=== PATIENT | female | born 1985 | race Caucasian/White ===

== ENCOUNTER → 2024-10-05 13:31 | Outpatient (REF) | payer SELFPAY | LOC: PNTC 13:31 | PROVIDERS: ATTENDING PHYSICIAN Obstetrics & Gynecology | DX: O09.529 Supervision of elderly multigravida, unspecified trimester (principal) | CPT/HCPCS: 76811 ==

== ENCOUNTER → 2024-11-05 12:04 | Outpatient (REF) | payer SELFPAY | LOC: PNTC 12:04 | PROVIDERS: ATTENDING PHYSICIAN Advanced Practice Midwife | DX: Z34.90 Encounter for supervision of normal pregnancy, unspecified, unspecified trimester (principal) | CPT/HCPCS: 36415; 86850; 86900; 86901; 96372; J2790 ==

== ENCOUNTER → 2024-12-28 11:26 | Outpatient (REF) | payer SELFPAY | LOC: PNTC 11:26 | PROVIDERS: ATTENDING PHYSICIAN Advanced Practice Midwife | DX: O09.523 Supervision of elderly multigravida, third trimester (principal) | CPT/HCPCS: 76816 ==

== ENCOUNTER 2025-01-23 05:42 | Inpatient (IN) | payer OTHER, SELFPAY ==
[2025-01-23 06:04] VITALS: BP 160/131; BMI 29.1
[2025-01-23 06:10] LABS: Hematocrit 38.4 % (37.0-47.0); Hemoglobin 13.2 g/dL (12.0-16.0); Mean Corp Hgb Conc. 34.4 g/dL (33.0-37.0); Mean Corpuscular Volume 84.6 fL (81.0-99.0); Nucleated Red Blood Cells % 0 %; Platelet Count 120 10^3/uL (130-400); Red Cell Dist. Width 14.1 % (11.5-14.5)
[2025-01-23] MEDS: PITOCIN 30 UNITS/NSS 500 ML IV (06:15)
[2025-01-23] MEDS: COLACE 100 MG PO ×2 (08:15→20:20)
[2025-01-23] MEDS: MOTRIN 600 MG PO ×3 (08:15→22:49)
[2025-01-23] MEDS: TYLENOL ORAL SOLUTION 650 MG PO (08:16)
[2025-01-24] MEDS: MOTRIN 600 MG PO ×3 (06:59→20:30)
[2025-01-24] MEDS: COLACE 100 MG PO ×2 (08:22→20:30)
[2025-01-24] MEDS: RHOGAM 300 MCG IM (16:55)
[2025-01-24] MEDS: MAGNESIUM OXIDE 400 MG PO (20:30)
[2025-01-25] MEDS: MOTRIN 600 MG PO ×2 (04:42→11:43)
[2025-01-25] MEDS: COLACE 100 MG PO (08:28)
[2025-01-25] MEDS: MAGNESIUM OXIDE PO (08:28)
[2025-01-26 11:19] LABS: Syphilis/T. pallidum Ab Reflex Negative (Negative)
== END 2025-01-25 14:42 | disposition home or self-care (01) | DRG 807 ==
LOC: LDRP 05:42
PROVIDERS: ADMITTING PHYSICIAN Advanced Practice Midwife; FAMILY PHYSICIAN Family Medicine
PROC: 10E0XZZ Delivery of Products of Conception, External Approach (ICD-10-PCS; 2025-01-23)
PROC: 3E0234Z Introduction of Serum, Toxoid and Vaccine into Muscle, Percutaneous Approach (ICD-10-PCS; 2025-01-24)
DX: O80 Encounter for full-term uncomplicated delivery (principal); Z37.0 Single live birth; Z3A.39 39 weeks gestation of pregnancy
CPT/HCPCS: 85025; 85461; 86780; 86850; 86870; 86900; 86901; J2790